=== PATIENT | male | born 1980 | race Caucasian/White ===

== ENCOUNTER 2023-10-09 10:40 | Emergency (ER) | payer BC, SELFPAY ==
[2023-10-09 10:49] VITALS: BP 154/92
--- NOTE | 2023-10-09 11:35 | ED.GENMED ---
History of Present Illness
General
Chief Complaint: Abdominal Symptoms
Time Seen by Provider: 10/09/23 11:35
Travel History
Have you had any contact with someone who has COVID-19?: No
Do you have any symptoms of coronavirus? Fever > 100 degrees, chills, cough, shortness of breath, sore throat, loss of taste or smell, muscle aches, or headache?: No
History of Present Illness
History of Present Illness:
HPI: Patient presents with left lower quadrant pain. This has been an intermittent issue for the past 1 year. In the past, the patient had a colonoscopy which showed diverticular disease but no sign of diverticulitis. He spoke to his primary care
doctor as he had a recurrence of the left lower quadrant pain.
EXAM:
GENERAL: Well appearing in no distress
HEENT: Moist oral mucosa
CARDIOVASCULAR: No murmurs, normal heart rate and rhythm, No chest wall tenderness
PULMONARY: No respiratory distress, breath sounds are clear and equal
ABDOMEN: Soft with no peritoneal signs, mild left lower quadrant tenderness
NEUROLOGIC: Excellent strength all extremities, no coordination deficits
PSYCHIATRIC: Appropriate mental status, normal insight and judgement
EXTREMITIES: Nontender, no edema, moves all extremities equally
SKIN: No rash, no lesions
ED COURSE:
11:40 AM: I initially evaluated patient
NUMBER AND COMPLEXITY OF PROBLEMS ADDRESSED AT THE ENCOUNTER
� Chronic conditions affecting care: Has had cholecystectomy in the past, was told he had diverticulosis based on colonoscopy in the past
� Acute Exacerbation and/or Progression of Chronic Illness: This is an acute but recurring problem
� Differential Diagnosis includes: Diverticulitis, complication of diverticulitis, IBS, IBD
AMOUNT AND/OR COMPLEXITY OF DATA TO BE REVIEWED AND ANALYZED
� I performed an independent evaluation of and my interpretation is:
EKG:
CT: CT imaging shows evidence of uncomplicated diverticulitis
X-rays:
Laboratory Studies: White count is normal, hemoglobin normal, chemistries unremarkable, lipase normal
Other:
� Review of other/old records: Ultrasound in 2018 showed fatty liver disease without cirrhosis
� Clinical information was obtained by an independent historian: None needed
� Prescriptions/Medications Considered but not given:
� Further testing considered but not performed:
RISK OF COMPLICATIONS AND/OR MORBIDITY OR MORTALITY OF PATIENT MANAGEMENT
� Social determinants of health affecting care: Lives at home
� Discussion with other providers: None needed
� Escalation of care including admission/observation vs risk of discharge considered: The patient has known diverticular disease now with left lower quadrant pain that is been a recurring problem for the past year. Sent here for
CT imaging. CT imaging does show uncomplicated diverticulitis. I have given the patient contact information for local surgeon at his request as the patient has had several bouts of similar episodes presumed to be diverticulitis.
Past History
Past History
ED Past Medical History: Other (R hand fx)
ED Past Surgical History: Other (R hand sx)
Social History
Tobacco: Non-smoker
Alcohol: None
Drug: None
Living: with family
Employment: Employed (RN)
Family History
Family History: Other ([place])
Phy Exam
Physical Exam
Physical Exam:
See HPI
Course
Orders/Labs/Results
Orders:
Orders
10/09/23 11:22
Complete Blood Count/With Diff Urgent
Comprehensive Metabolic Panel Urgent
Lipase Urgent
10/09/23 11:41
CT Abd/pelvis W Iv Cont Urgent
Comment:
Reason For Exam: LLQ pain, h/o diverticulosis
10/09/23 11:42
0.9% Sodium Chloride 1000 ml [Nss] 1,000 ml IV BOLUS
10/09/23 14:03
Amoxicillin 875 mg/Clav 125 mg [Augmentin 875 mg/125 mg] 1 tablet PO NOW STA
Abnormal Lab Results
10/09/23
11:22
MPV 11.3 H fL
(7.4-10.4)
ALT 89 H U/L
(0-50)
10/09/23 11:22
10/09/23 11:22
Vital Signs
Initial and Last Documented VS:
Initial Vital Signs
Temp Pulse Resp BP Pulse Ox
98.1 F 89 16 154/92 98
10/09/23 10:49 10/09/23 10:49 10/09/23 10:49 10/09/23 10:49 10/09/23 10:49
Last Documented Vital Signs
Temp Pulse Resp BP Pulse Ox
98.1 F 80 18 142/88 99
10/09/23 10:49 10/09/23 14:51 10/09/23 14:51 10/09/23 14:51 10/09/23 14:51
*Critical Care Note
Total Time (30-74mins, 75-104mins- exclusive of procedures): Not Applicable
ED Attending Note
-
Portions of this chart may have been created with voice recognition software.� Occasional wrong word or��sound alike� substitutions may have occurred due to the inherent limitations of voice recognition software.
Discharge Plan
Departure
Patient Disposition: Home (Routine Discharge)
Date of Disposition: 10/09/23
Time of Disposition: 14:06
Patient with high blood pressure during this ER visit?: Yes
Discharge Problem:
Diverticulitis
Instructions: Diverticulitis (DC)
Prescriptions:
New
amoxicillin-pot clavulanate 875-125 mg tablet
1 tab PO BID Qty: 14 0RF
Referrals:
Dayne Penaloza DO [Family Provider] -
Santi Wade MD [Active] - Follow up in 5-7 days
Kyra Hand MD [Active] - Follow up in 5-7 days
Activity Restrictions/Additional Instructions:
Your CAT scan shows signs of acute uncomplicated diverticulitis of the proximal sigmoid colon. Since this is a recurring, I have given you the contact information for a local surgeon as well as GI doctor. Return here if worse.
Interventions
Interventions:
*ED COVID-19 Vaccine History Last Done: 10/09/23 10:49
*Nursing Disposition Last Done: 10/09/23 14:56
GZ-Blxahs-Gilyclxkwc Assessment Last Done: 10/09/23 14:51
Discharge Date and Time
Discharge Date/Time: 10/09/23 14:56
[2023-10-09 11:37] LABS: % Basophils 0.1 % (0-2); % Immature Granulocytes 0.4 % (0-0.5); % Lymphocytes 24.3 % (20.5-51.1); % Monocytes 7.5 % (1.7-9.3); % Neutrophils 66.7 % (42.2-75.2); Absolute Eosinophils 0.1 10^3/uL (0-0.7); Absolute Lymphocytes 1.9 10^3/uL (1.2-3.4); Absolute Monocytes 0.6 10^3/uL (0.1-0.6); Absolute Neutrophils 5.3 10^3/uL (1.4-6.5); Hematocrit 42.9 % (39.0-52.0); Hemoglobin 14.6 g/dL (13.0-18.0); Mean Corpuscular Hgb 28.2 pg (27.0-31.0); Mean Platelet Volume 11.3 fL (7.4-10.4); Nucleated Red Blood Cells % 0 % (-); Platelet Count 248 10^3/uL (130-400); Red Blood Cell Count 5.17 10^6/uL (4.70-6.10); Red Cell Dist. Width 13.8 % (11.5-14.5); White Blood Cell Count 7.9 10^3/uL (4.8-10.8)
[2023-10-09 11:49] LABS: ALT (SGPT) 89 U/L (0-50); AST (SGOT) 39 U/L (17-59); Albumin 4.5 g/dl (3.5-5.0); Alkaline Phosphatase 84 U/L (38-126); Blood Urea Nitrogen 19 mg/dl (9-20); Calcium 9.2 mg/dl (8.4-10.2); Carbon Dioxide 27 mmol/L (22-30); Chloride 103 mmol/L (98-107); Glucose 88 mg/dl (70-99); Lipase 202 U/L (23-300); Potassium 4.4 mmol/L (3.5-5.1); Sodium 136 mmol/L (135-145); Total Bilirubin 0.9 mg/dl (0.2-1.3); Total Protein 7.3 g/dl (6.3-8.2); eGFR > 60.00
[2023-10-09] MEDS: NSS 1000 IV (12:48)
[2023-10-09] MEDS: AUGMENTIN 875 MG/125 MG 1 TABLET PO (14:27)
[2023-10-09 14:51] VITALS: BP 142/88
== END 2023-10-09 14:56 | disposition home or self-care (01) ==
LOC: EMR 10:40
PROVIDERS: EMERGENCY PHYSICIAN Emergency Medicine; FAMILY PHYSICIAN Family Medicine
DX: K57.32 Diverticulitis of large intestine without perforation or abscess without bleeding (principal); R03.0 Elevated blood-pressure reading, without diagnosis of hypertension
CPT/HCPCS: 99284; 96360; 74177; 80053; 83690; 85025; Q9967

== ENCOUNTER → 2024-05-15 10:27 | Outpatient (REF) | payer BC, SELFPAY | LOC: DHSLP 10:27 | PROVIDERS: ATTENDING PHYSICIAN Physician Assistant; FAMILY PHYSICIAN Family Medicine | DX: G47.33 Obstructive sleep apnea (adult) (pediatric) (principal) | CPT/HCPCS: 95800 ==

== ENCOUNTER → 2024-05-25 16:56 | Outpatient (REF) | payer BC, SELFPAY | LOC: RAD 16:56 | PROVIDERS: ATTENDING PHYSICIAN Podiatrist Foot & Ankle Surgery; FAMILY PHYSICIAN Family Medicine | DX: M20.41 Other hammer toe(s) (acquired), right foot (principal) | CPT/HCPCS: 73610; 73630 ==

== ENCOUNTER 2024-09-29 07:38 | Emergency (ER) | payer BC, SELFPAY ==
[2024-09-29 07:49] VITALS: BP 140/80
[2024-09-29 07:52] VITALS: BMI 38.2
[2024-09-29] MEDS: OMNIPAQUE 50 ML PO (08:02)
[2024-09-29 08:12] LABS: % Basophils 0.3 % (0-2); % Immature Granulocytes 0.3 % (0-0.5); % Lymphocytes 36.5 % (20.5-51.1); % Monocytes 9.2 % (1.7-9.3); % Neutrophils 52.7 % (42.2-75.2); Absolute Eosinophils 0.1 10^3/uL (0-0.7); Absolute Lymphocytes 2.1 10^3/uL (1.2-3.4); Absolute Monocytes 0.5 10^3/uL (0.1-0.6); Hematocrit 45.4 % (39.0-52.0); Hemoglobin 15.5 g/dL (13.0-18.0); Mean Corp Hgb Conc. 34.1 g/dL (33.0-37.0); Mean Corpuscular Hgb 29.3 pg (27.0-31.0); Mean Corpuscular Volume 85.8 fL (80.0-94.0); Mean Platelet Volume 11.2 fL (7.4-10.4); Nucleated Red Blood Cells % 0 % (-); Platelet Count 249 10^3/uL (130-400); Red Blood Cell Count 5.29 10^6/uL (4.70-6.10); Red Cell Dist. Width 12.8 % (11.5-14.5); White Blood Cell Count 5.8 10^3/uL (4.8-10.8)
[2024-09-29 08:29] LABS: ALT (SGPT) 114 U/L (0-50); AST (SGOT) 78 U/L (17-59); Albumin 4.8 g/dl (3.5-5.0); Alkaline Phosphatase 81 U/L (38-126); Blood Urea Nitrogen 13 mg/dl (9-20); Calcium 10.4 mg/dl (8.4-10.2); Carbon Dioxide 28 mmol/L (22-30); Chloride 100 mmol/L (98-107); Estimated Creatinine Clearance > 125 ml/min; Glucose 96 mg/dl (70-99); Lipase 167 U/L (23-300); Potassium 4.4 mmol/L (3.5-5.1); Sodium 139 mmol/L (135-145); Total Bilirubin 1.2 mg/dl (0.2-1.3); eGFR > 60.00
--- NOTE | 2024-09-29 09:24 | ED.GENMED ---
History of Present Illness
General
Chief Complaint: Abdominal Pain
Source: patient
Exam Limitations: none
Time Seen by Provider: 09/29/24 09:23
Nursing documentation reviewed up to this point in time: agreed with
History of Present Illness
History of Present Illness:
44-year-old male with a past medical history of recurrent diverticulitis, hypertension, who presents emergency department today with concerns of left lower quadrant pain for the past 2 weeks. Patient reports that he gets diverticulitis recurrently.
He states that this felt like his flare of diverticulitis and usually the symptoms will resolve with bowel rest for few days. However he reports that he did bowel rest and his symptoms are not improving. He has no nausea or vomiting. He has had
diarrhea but denies any blood in his stools. He denies any changes in his appetite. He states that he follows with multiple bander and his current bander is Dr. Matt Pittman. He has abdominal surgical history of
cholecystectomy. He denies any recent travel outside the country. He denies any fevers or chills. He called his PCP about the symptoms who put him on Augmentin. He is on day 4 of Augmentin.
Past History
Past History
ED Past Medical History: Other (R hand fx)
ED Past Surgical History: Other (R hand sx)
Social History
Tobacco: Non-smoker
Alcohol: None
Drug: None
Living: with family
Employment: Employed (RN)
Family History
Family History: Other ([place])
Review of Systems
Review of Systems
All Other Systems: ROS reviewed and negative except as documented in HPI and ROS
Phy Exam
Physical Exam
Physical Exam:
General: Patient is well appearing and in no acute distress; non-toxic
Skin: Warm and dry, no rashes or lesions
Head: Normocephalic, atraumatic
Eyes: Sclera non-icteric. EOMs intact.
Cardiac: Regular rate and rhythm, no murmurs
Peripheral Vascular: No lower extremity swelling or edema
Pulm: Normal respiratory effort, no wheezes, rales, rhonchi
Abdomen: Left lower quadrant tenderness to palpation noted no guarding no palpable abdominal masses
Neuro: CN II-XII intact, no focal neurologic deficits.
Psychiatric: Appropriate mood and affect.
Course
Orders/Labs/Results
Orders:
Orders
09/29/24 07:55
Iohexol [Omnipaque] 50 ml .ROUTE .STK-MED ONE
09/29/24 08:02
Iohexol [Omnipaque] See Protocol PO NOW STA
09/29/24 08:05
Complete Blood Count/With Diff Urgent
Comprehensive Metabolic Panel Urgent
Lipase Urgent
09/29/24 09:46
CT Abd/pelvis W Iv Cont Urgent
Comment:
Reason For Exam: LLQ pain
Abnormal Lab Results
09/29/24
08:05
MPV 11.2 H fL
(7.4-10.4)
Calcium 10.4 H mg/dl
(8.4-10.2)
AST 78 H U/L
(17-59)
ALT 114 H U/L
(0-50)
09/29/24 08:05
09/29/24 08:05
Vital Signs
Initial and Last Documented VS:
Initial Vital Signs
Temp Pulse Resp BP Pulse Ox
98.8 F 89 16 140/80 98
09/29/24 07:49 09/29/24 07:49 09/29/24 07:49 09/29/24 07:49 09/29/24 07:49
Last Documented Vital Signs
Temp Pulse Resp BP Pulse Ox
98.8 F 92 16 124/57 99
09/29/24 07:49 09/29/24 11:21 09/29/24 07:49 09/29/24 11:21 09/29/24 11:21
MDM/Problems Addressed
Differential Diagnosis Includes:
Differentials include diverticulitis, intra-abdominal abscess, colitis, gastroenteritis, inguinal hernia, abdominal wall muscle strain
MDM/Problems Addressed:
44-year-old male with a past medical history of recurrent diverticulitis, hypertension, who presents emergency department today with concerns of left lower quadrant pain for the past 2 weeks. He states he has a history of recurrent diverticulitis.
On exam he is well-appearing in no acute distress he is afebrile but does have left lower quadrant tenderness. He has been on Augmentin for 4 days. His symptoms have not improved. Will obtain CAT scan to rule out intra-abdominal
abscess,/perforation.
CT ab/pelvis shows acute diverticulitis with no abscess or perforation. In light of patient's pain not improving, will switch from Augmentin to levofloxacin and metronidazole, stressed GI follow up. Discussed return precautions.
Chronic conditions affecting care:
HTN, diverticulitis
*Pulse Oximetry
Patient hypoxic: no
*Critical Care Note
Total Time (30-74mins, 75-104mins- exclusive of procedures): Not Applicable
Data Reviewed
Review of Other/Old Records Reveals: Records (Reviewed previous ER physician documentation from 10/09/23, patient seen for diverticulitis was found to have uncomplicated diverticulitis)
Source: patient
Patient Management
Escalation/DeEscalation of care consider admission/obs:
Patient declining medication for pain at this time for pain.
Case reviewed with my attending, patient stable for discharge
ED Attending Note
-
Portions of this chart may have been created with voice recognition software.� Occasional wrong word or��sound alike� substitutions may have occurred due to the inherent limitations of voice recognition software.
Discharge Plan
Departure
Patient Disposition: Home (Routine Discharge)
Date of Disposition: 09/29/24
Time of Disposition: 11:07
Patient with high blood pressure during this ER visit?: Yes
Condition: Good
Discharge Problem:
Acute diverticulitis
Instructions: Diverticulitis (DC), BLOOD PRESSURE
Prescriptions:
New
metronidazole 500 mg tablet
500 mg PO TID 10 Days Qty: 30 0RF
levofloxacin 750 mg tablet
750 mg PO DAILY 10 Days Qty: 10 0RF
No Action
amoxicillin-pot clavulanate 875-125 mg tablet
1 tab PO BID Qty: 14 0RF
Referrals:
Mook Caro MD [Active] - Call in 1-3 days for appt
Dayne Penaloza DO [Family Provider] -
Activity Restrictions/Additional Instructions:
2 different antibiotics have been sent to your pharmacy. Please start taking levofloxacin 1 tablet once daily for 10 days.
Metronidazole has also been sent to your pharmacy. Please take one tablet twice daily for 10 days.
Your liver function tests (AST and ALT) were elevated today. Please have these values repeated with your primary care provider in one week. This may be related to fatty liver disease.
Please call your bander Dr. Pittman for a follow up appointment.
We attached number for general surgeon, please call to schedule an appointment.
PLEASE RETURN EMERGENCY DEPARTMENT SHOULD YOU DEVELOP ACUTE WORSENING OR SYMPTOMS, FEVERS OR CHILLS, NAUSEA AND VOMITING, CHEST PAIN OR SHORTNESS OF BREATH, DIZZINESS, LIGHTHEADEDNESS, OR ANY OTHER SIGNS OR SYMPTOMS WORRISOME TO YOU.
Interventions
Interventions:
*Risk Screen - Suicide Last Done: 09/29/24 07:51
*General Assessment Last Done: 09/29/24 07:49
*Neglect/Abuse Screening Last Done: 09/29/24 07:51
*ED COVID-19 Vaccine History Last Done: 09/29/24 07:49
*Nursing Disposition Last Done: 09/29/24 11:21
DP-Uaztfq-Fildyrhfkg Assessment Last Done: 09/29/24 11:02
Discharge Date and Time
Discharge Date/Time: 09/29/24 11:22
Print Language: FAROESE
[2024-09-29 10:31] VITALS: BP 124/57
[2024-09-29 11:21] VITALS: BP 124/57
== END 2024-09-29 11:22 | disposition home or self-care (01) ==
LOC: EMR 07:38
PROVIDERS: EMERGENCY PHYSICIAN Student in an Organized Health Care Education/Training Program; FAMILY PHYSICIAN Family Medicine
DX: K57.32 Diverticulitis of large intestine without perforation or abscess without bleeding (principal); I10 Essential (primary) hypertension; Z90.49 Acquired absence of other specified parts of digestive tract
CPT/HCPCS: 99284; 74177; 80053; 83690; 85025; Q9967

== ENCOUNTER 2024-12-10 06:22 | Day surgery (SDC) | payer BC, SELFPAY | END 2024-12-10 09:59 | disposition home or self-care (01) | LOC: GI 06:22 | PROVIDERS: ATTENDING PHYSICIAN Internal Medicine Gastroenterology | DX: D12.0 Benign neoplasm of cecum (principal); D12.2 Benign neoplasm of ascending colon; D12.3 Benign neoplasm of transverse colon; R10.32 Left lower quadrant pain; K57.32 Diverticulitis of large intestine without perforation or abscess without bleeding; K57.30 Diverticulosis of large intestine without perforation or abscess without bleeding; K62.89 Other specified diseases of anus and rectum; R19.7 Diarrhea, unspecified; K64.0 First degree hemorrhoids | CPT/HCPCS: 45385; 45380; 88305 ==